=== PATIENT | male | born 1940 | race Caucasian/White ===

== ENCOUNTER 2020-11-27 01:47 | Day surgery (SDC) | payer MEDICARE, SELFPAY ==
[2020-11-15 08:45] VITALS: BMI 23.8
[2020-11-27 09:04] VITALS: BP 109/72; PULSE 96; RESP 16; TEMP 36.1; O2SAT 100; BMI 22.7
[2020-11-27] MEDS: GENTAMICIN 80MG/SOD CHL 50 ML 80 MG/50 ML BAG 100 MG IVPB (09:26)
[2020-11-27] MEDS: LACTATED RINGERS 1,000 ML 150 ML IV CONT (09:27)
--- NOTE | 2020-11-27 09:30 | WPDANESEPPF ---
Anes - Initial Pre Proc Eval Procedure: Operation Date: 11/27/20 10:00 Proposed Procedures p Screening Colonoscopy - Olman Rand MD Date/Time: 11/27/20 09:30 Surgeon: Olman Rand MD Pre Op Diagnosis: neoplasm screening Z12.11 Patient Data Age: 80 Gender: M Height: 1.83 m Weight: 76 kg Last Vital Signs Temp 36.1 C L 11/27/20 09:04 Pulse 96 11/27/20 09:04 Resp 16 11/27/20 09:04 BP 109/72 11/27/20 09:04 Pulse Ox 100 11/27/20 09:04 Allergies Allergy/AdvReac Type Severity Reaction Status Date / Time No Known Allergies Allergy Verified 11/27/20 09:02 Home Medications Medication Instructions Recorded Confirmed Type Lactobac 40-Bifido 3-S.thermop 1 cap PO DAILY 11/15/20 11/15/20 History [Probiotic] ascorbic acid (vitamin C) [Vitamin 500 mg PO DAILY 11/15/20 11/15/20 History C] aspirin [Aspir-81] 81 mg PO DAILY 11/15/20 11/15/20 History calcium carbonate [Calcium 600] 600 mg PO DAILY 11/15/20 11/15/20 History escitalopram oxalate 20 mg PO HS 11/15/20 11/15/20 History metoprolol tartrate 25 mg PO BID 11/15/20 11/15/20 History multivitamin with minerals [Men's 1 tablet PO DAILY 11/15/20 11/15/20 History One Daily] omega-3 fatty acids-vitamin E 1 cap PO BID 11/15/20 11/15/20 History [Fish Oil] simvastatin 40 mg PO HS 11/15/20 11/15/20 History Patient hx anesthesia problems: none Family hx anesthesia problems: none Results Review: All pre-operative results and documents have been reviewed as part of the pre-operative evaluation. [facility] Past Medical History Medical History Hyperlipidemia Hypertension Surgical History Surgical History S/P AVR (aortic valve replacement) Social History Social History Smoking status: Never smoker Living arrangements: with family Spiritual care concerns: No Anes - Eval Final PreProcedure Day of Procedure 11/27/20 09:30 Patient weight: normal Heart: regular rate and rhythm Lungs: decreased breath sounds Airway: Mallampati scale class II Neurological: alert and oriented Last oral intake: >/= 8 hours ASA classification: III Emergent: no Anesthetic plan: proceed Anesthesia type and monitoring: general GIVS and standard monitoring Results Review: All pre-operative results and documents have been reviewed as part of the pre-operative evaluation. Informed Consent: The patient's anesthetic plan and its attendant risks and benefits were discussed with the patient/family/POA. Questions were solicited and answers provided to the satisfaction of the patient/family/POA.
[2020-11-27] MEDS: AMPICILLIN 2 GM/NS 100 ML 2 GM/100 ML BAG IVPB (09:56)
--- NOTE | 2020-11-27 10:13 | PM.HPGS ---
History of Present Illness History of Present Illness Consent: Risks, benefits, and alternatives have been discussed and questions answered. Patient agrees to proceed with procedure. Chief complaint: neoplasm screening Z12.11 Narrative: Leo Carreno is a 80 year old male with last colonoscopy with polyp 5 years ago, lately had some diarrhea but improved. Review of Systems Constitutional: Constitutional: Denies headache(s) and Denies weakness Eyes: Eyes: Denies blurry vision ENT: Reports Normal hearing present, Denies headache(s) and Denies neck pain Cardiovascular: Cardiovascular: Denies chest pain and Denies dyspnea Respiratory: Respiratory: Denies dyspnea Gastrointestinal: Gastrointestinal: Reports no additional gastrointestinal complaints Genitourinary: Genitourinary: Denies dysuria Musculoskeletal: Musculoskeletal: Denies neck pain Integumentary/Breasts: Skin/Breast: Denies dry skin Neurologic: Reports Normal hearing present, Denies headache(s) and Denies weakness Psychiatric: Psychiatric: Denies anxiety Endocrine: Endocrine: Denies change in body appearance Hematologic/Lymphatic: Hematologic/Lymphatic: Denies easy bleeding Allergic/Immunologic: Allergic/Immunologic: Denies urticaria [facility] Past Medical History Medical History (Updated 11/27/20 @ 10:14 by Olman Rand MD) Colon cancer screening Hyperlipidemia Hypertension Surgical History Surgical History S/P AVR (aortic valve replacement) Social History Social History Smoking status: Never smoker Living arrangements: with family Spiritual care concerns: No Meds Home Medications and Allergies Home Medications Medication Instructions Recorded Confirmed Type Lactobac 40-Bifido 3-S.thermop 1 cap PO DAILY 11/15/20 11/15/20 History [Probiotic] ascorbic acid (vitamin C) [Vitamin 500 mg PO DAILY 11/15/20 11/15/20 History C] aspirin [Aspir-81] 81 mg PO DAILY 11/15/20 11/15/20 History calcium carbonate [Calcium 600] 600 mg PO DAILY 11/15/20 11/15/20 History escitalopram oxalate 20 mg PO HS 11/15/20 11/15/20 History metoprolol tartrate 25 mg PO BID 11/15/20 11/15/20 History multivitamin with minerals [Men's 1 tablet PO DAILY 11/15/20 11/15/20 History One Daily] omega-3 fatty acids-vitamin E 1 cap PO BID 11/15/20 11/15/20 History [Fish Oil] simvastatin 40 mg PO HS 11/15/20 11/15/20 History Allergies Allergy/AdvReac Type Severity Reaction Status Date / Time No Known Allergies Allergy Verified 11/27/20 09:02 Vital Signs Vital Signs - 24 hr 11/27/20 09:04 Temperature 96.9 F L Pulse Rate 96 Respiratory Rate 16 Blood Pressure 109/72 Pulse Oximetry 100 Exam Const: General: comfortable and no acute distress HENMT: General nose exam: Normal nares present Eyes: General: appearance normal, both eyes and all related structures Neck: Neck: no JVD Resp: Auscultation: clear to auscultation bilaterally Cardio: Rate: regular rate Rhythm: regular rhythm GI: Inspection: non-distended GI Palp: Yes Soft to palpation Skin: General skin exam: normal color Neuro: General: gait normal Speech: normal speech Extrem: General: normal to inspection Psych: Mental Status: mental status grossly normal Assessment and Plan Assessment and plan (1) Colon cancer screening: Code(s): Z12.11 - Encounter for screening for malignant neoplasm of colon Status: Acute Assessment and Plan: colonoscopy, also may consider random colon bx to check for microscopic colitis
[2020-11-27 10:37] VITALS: BP 91/56; PULSE 64; RESP 15; O2SAT 100
[2020-11-27 10:47] VITALS: BP 89/53; PULSE 62; RESP 16; O2SAT 100
[2020-11-27 10:57] VITALS: BP 101/61; PULSE 65; RESP 18; O2SAT 100
== END 2020-11-27 11:15 | disposition home or self-care (01) ==
PROVIDERS: PCP Internal Medicine; Visit Provider Internal Medicine Gastroenterology
PROC: 0DJD8ZZ Inspection of Lower Intestinal Tract, Via Natural or Artificial Opening Endoscopic (ICD-10-PCS; CPT 45378; principal; 2020-11-27 10:00)
DX: Z12.11 Encounter for screening for malignant neoplasm of colon (principal); K64.8 Other hemorrhoids; K63.5 Polyp of colon; D12.2 Benign neoplasm of ascending colon; I10 Essential (primary) hypertension; E78.5 Hyperlipidemia, unspecified; Z95.2 Presence of prosthetic heart valve; Z79.82 Long term (current) use of aspirin
CPT/HCPCS: 45385; 45380; 88305; J0290; J1580; J2001; J2704; J7120